=== PATIENT | male | born 1990 ===

== ENCOUNTER 2019-04-06 | Emergency (ER) | payer OTHER ==
[2019-04-06] MEDS ORDERED: CEPHALEXIN500 M1 PO (15:38)
== END 2019-04-06 18:56 | disposition home or self-care (01) | DRG 605 ==
PROC: 0HQLXZZ Repair Left Lower Leg Skin, External Approach (ICD-10-PCS; principal; 2019-04-06)
DX: S81.812A Laceration without foreign body, left lower leg, initial encounter (principal); W27.8XXA Contact with other nonpowered hand tool, initial encounter; Y93.H9 Activity, other involving exterior property and land maintenance, building and construction; Y92.79 Other farm location as the place of occurrence of the external cause; Y99.0 Civilian activity done for income or pay

== ENCOUNTER 2019-04-14 | Emergency (ER) | payer OTHER ==
[~2019-04-14] MED LIST: CEPHALEXIN500 M1 PO
== END 2019-04-14 08:46 | disposition home or self-care (01) | DRG 950 ==
DX: S81.812D Laceration without foreign body, left lower leg, subsequent encounter (principal); X58.XXXD Exposure to other specified factors, subsequent encounter